=== PATIENT | female | born 1985 | race African-American/Black ===

== ENCOUNTER → 2016-11-10 | Outpatient (CLI) | payer OTHER ==
[~2016-11-10] MED LIST: DIFLUCAN PO; LEVAQUIN750 MG PO; NECON PO; VIBRAMYCIN100 M1 PO; VIGAMOX3 ML OP
--- NOTE | ~2016-11-10 | US98 ---
[facility] A Service of [facility] RADIOLOGY TEXT RESULTS PATIENT: ERIC WILLIS LOCATION: [facility] : 85 UNIT #: [id number] AGE: [address]: ALLIE FIGUEROA APRN SEX: F ORDER DR: [id number] [facility] [address] [place], [place] [address] [id number] O MR#: [id number] Acc #: [id number] NAME: ERIC WILLIS : 1985 SEX: F STUDY DATE/TIME: 11/10/2016 10:47 UNIT: [facility] ROOM: STUDY DESCRIPTION: US Pelvic Non-OB Complete Attending Physician: Allie Figueroa Aprn Referring Physician: Allie Figueroa Aprn Ordering Physician: Allie Figueroa Aprn Primary Care Physician: Allie Figueroa Aprn MEDICAL IMAGING REPORT This report is preliminary unless electronic signature is present EXAM Pelvic ultrasound INDICATIONS Abnormal menses since October 2016 PROCEDURE Wright-scale and Doppler imaging of the pelvis via transabdominal and transvaginal approach COMPARISON 01/18/2013 FINDINGS Uterus is anteverted and measures 8.5 x 3.9 x 6.8 cm. Endometrium measures 4 mm in thickness. There is a 10 mm fibroid in the anterior uterine body. Right ovary measures 2.5 x 4.3 x 1.9 cm. Left ovary measures 3.3 x 2.6 x 1.2 cm. Ovaries have normal appearance. Patient has a known pelvic kidney and it is partially seen on the transvaginal images. IMPRESSION 1. 10 mm fibroid in the anterior uterine body. Otherwise negative pelvic ultrasound. 2. Partially seen known pelvic kidney. Dictated by... Claudio Garrido M.D. THIS IS AN ELECTRONICALLY VERIFIED REPORT Claudio Garrido M.D. at 11/11/2016 7:08 AM EED/to [facility] A Service of [facility] / [facility] RADIOLOGY TEXT RESULTS PATIENT: ERIC WILLIS LOCATION: [facility] : 85 UNIT #: [id number] AGE: [address]: ALLIE FIGUEROA APRN SEX: F ORDER DR: TD: 11/10/2016 19:04 JOB #: [id number] MEDICAL IMAGING REPORT Page 1 of 1 COPY
--- NOTE | ~2016-11-10 | US77 ---
[facility] A Service of [facility] RADIOLOGY TEXT RESULTS PATIENT: ERIC WILLIS LOCATION: [facility] : 85 UNIT #: [id number] AGE: [address]: ALLIE FIGUEROA APRN SEX: F ORDER DR: [id number] [facility] [address] [place], [place] [address] [id number] O MR#: [id number] Acc #: [id number] NAME: ERIC WILLIS : 1985 SEX: F STUDY DATE/TIME: 11/10/2016 11:15 UNIT: [facility] ROOM: STUDY DESCRIPTION: US Kidney Bilateral Complete Attending Physician: Allie Figueroa Aprn Referring Physician: Allie Figueroa Aprn Ordering Physician: Allie Figueroa Aprn Primary Care Physician: Allie Figueroa Aprn MEDICAL IMAGING REPORT This report is preliminary unless electronic signature is present EXAM Renal ultrasound INDICATIONS Right flank pain, hematuria for the past month. PROCEDURE Wright-scale and Doppler imaging of the kidneys and bladder. COMPARISON CT from 03/22/2014 FINDINGS Right kidney measures 12.9 cm in length. Normal echotexture, cortical thickness. Slight prominence of the right renal pelvis. Left kidney is a pelvic kidney. It is only partially seen on this study. No obvious hydronephrosis. IMPRESSION 1. Left-sided pelvic kidney only partially seen. 2. Slight asymmetric prominence of the right renal pelvis but otherwise the right kidney appears normal. 3. The bladder is decompressed on this study and not well seen. Dictated by... Claudio Garrido M.D. THIS IS AN ELECTRONICALLY VERIFIED REPORT Claudio Garrido M.D. at 11/11/2016 7:08 AM EED/to TD: 11/10/2016 19:48 JOB #: [id number] [facility] A Service of [facility] RADIOLOGY TEXT RESULTS PATIENT: ERIC WILLIS LOCATION: [facility] : 85 UNIT #: [id number] AGE: [address]: ALLIE FIGUEROA APRN SEX: F ORDER DR: MEDICAL IMAGING REPORT Page 1 of 1 COPY
== END | disposition home or self-care (01) ==
LOC: CWCC 10:24
DX: N92.6 Irregular menstruation, unspecified (principal); R10.9 Unspecified abdominal pain; R31.29 Other microscopic hematuria; D25.9 Leiomyoma of uterus, unspecified
CPT/HCPCS: 76770; 76830; 76856